=== PATIENT | female | born 1955 | race Two or more races ===

== ENCOUNTER 2020-08-17 18:51 | Emergency (ER) | payer SELFPAY ==
[~2020-08-17] VITALS: Ht 152.4 cm; Wt 103.3 kg
--- NOTE | 2020-08-17 19:44 | RAD ---
Exam: CT head INDICATION: Left-sided facial weakness TECHNIQUE: Sequential axial images through the head were obtained without the administration of IV co ntrast. Exposure: One or more of the following in the visualized dose reduction techniques were utilized for this examination: 1. Automated exposure control 2. Adjustment of the MA and/or KV according to patient size 3. Use of iterative of reconstructive technique Comparisons: None FINDINGS: No focal parenchymal lesion or hemorrhage is identified. There is no midline shift or sulcal effaceme nt. No acute vascular territory infarction is identified. Fallon-white distinction is preserved. The ventricular system is within normal limits without compression hydrocephalus. The basal cisterns are well maintained. The visualized portions of the paranasal sinuses and mastoid air cells are well-pneumatized. No acute fractures. IMPRESSION: No acute intracranial abnormality. Electronically signed by: Linda Almeida MD (08/17/2020 7:42 PM) MACK
[2020-08-17] MEDS ORDERED: PRED50TA PO (19:59)
[2020-08-17] MEDS ORDERED: VALA10008 PO (19:59)
[2020-08-17 20:03] VITALS: BP 168/74
--- NOTE | 2020-08-17 20:04 | ED.ADGEN ---
Past Medical History Past Medical History: Diabetes-Type II, High Cholesterol, Hypertension Past Surgical History: Cholecystectomy, Smoking Status: Never Smoker Alcohol Use: None General Adult EDM: Chief Complaint: NEURO SYMPTOMS/DEFICITS HPI: HPI: Patient is a 64-year-old female who presents to the emergency room complaining of numbness and drooping to the left side of her face. This started on Saturday morning. Is been constant since then and has not gotten better or worse. She is not able to lift her eyebrow or fully smile on that side. She denies any numbness or weakness in her arms or legs. She denies any other symptoms. This did happen to her once after having her molars removed in the s. Review of Systems: Review of Systems: Complete ROS is negative unless otherwise documented in HPI Allergies: Allergies: Allergies Coded Allergies Type Severity Reaction Last Updated Verified Penicillins Allergy Unknown 08/17/20 Yes Physical Exam: PE: General: Awake, alert, NAD. Well Nourished, well hydrated. Cooperative HEENT: Atraumatic, EOMI, PERRL, airway patent, moist oral mucosa Neck: Supple, trachea midline Respiratory: CTA bilaterally, normal effort, no wheezing/crackles CV: RRR, no murmur, cap refill <2 GI: Soft, nondistended, nontender, no masses MSK: No obvious deformities Skin: Warm, dry, intact Neuro: A&O x3, speech NL, 5/5 strength in BUE/BLE distally and proximally, left- sided facial droop including upper and lower face, normal sensation, cranial nerves otherwise intact, cerebellar testing normal Psych: Normal affect, normal mood, not suicidal or homicidal Current Patient Data: Labs: Laboratory Tests Test 08/17/20 18:58 Glucose (Fingerstick) 235 mg/dL (70-99) H Vital Signs: Vital Signs Date Time Temp Pulse Resp B/P (MAP) Pulse Ox O2 Delivery O2 Flow Rate FiO2 08/17/20 18:55 98.6 111 18 138/100 (113) 96 Room Air 98.6 EKG: EKG: [] Heart Score: C/O Chest Pain: N/A Risk Factors: Risk Factors: DM, Current or recent (<one month) smoker, HTN, HLP, family history of CAD, obesity. Risk Scores: Score 0 - 3: 2.5% MACE over next 6 weeks - Discharge Home Score 4 - 6: 20.3% MACE over next 6 weeks - Admit for Clinical Observation Score 7 - 10: 72.7% MACE over next 6 weeks - Early Invasive Strategies Radiology/Procedures: Radiology/Procedures: [] Course & Med Decision Making: Course & Med Decision Making Pertinent Labs and Imaging studies reviewed. (See chart for details) Patient is a 64-year-old female who presents to the emergency room with left- sided facial droop. Patient states that she feels like her face is numb, however objectively patient has full sensation on left side of her face. She does have facial droop with no forehead sparing. This is more consistent with Tracey's palsy than a central cause. Due to patient's age CT head will be done. It is been over 48 hours since onset of symptoms and CT is normal at this time making stroke highly unlikely. Patient will be treated as Tracey's palsy. Patient's test results and vitals while in the ED were fully reviewed and discussed with the patient. Patient is stable and at this time does not need admission to the hospital. We have discussed strict return precautions and the importance of following up with their Primary Care Physician. Patient stated understanding and was given an opportunity to ask any questions. Patient is in agreement with plan. Caron Disclaimer: Caron Disclaimer: This electronic medical record was generated, in whole or in part, using a voice recognition dictation system. Departure Departure Impression: Primary Impression: Tracey's palsy Disposition: HOME / SELF CARE / HOMELESS Condition: STABLE Patient Instructions: Tracey's Palsy Scripts Valacyclovir Hcl (VALACYCLOVIR) 1,000 Mg Tablet 1 TAB PO TID, #21 TAB Prov: ARMIN STUBBS MD 08/17/20 Prednisone (PREDNISONE) 50 Mg Tablet 1 TAB PO DAILY, #5 TAB Prov: ARMIN STUBBS MD 08/17/20 ARMIN STUBBS MD August 17, 2020 20:04
== END 2020-08-17 20:15 | disposition home or self-care (01) ==
LOC: ER 18:51
DX: G51.0 Bell's palsy (principal); E11.9 Type 2 diabetes mellitus without complications; E78.00 Pure hypercholesterolemia, unspecified; I10 Essential (primary) hypertension; Z88.0 Allergy status to penicillin
CPT/HCPCS: 70450; 82962; 93005; 99285-25